=== PATIENT | male | born 1975 | race Caucasian/White ===

== ENCOUNTER 2018-06-11 00:52 | Outpatient (CLI) | payer BC, SELFPAY ==
[2018-06-11 11:14] LABS: TSH 1.84 uIU/mL (0.358-3.74)
== END 2018-06-11 01:12 ==
PROVIDERS: PCP Family Medicine; Visit Provider Family Medicine
DX: R53.83 Other fatigue (principal)
CPT/HCPCS: 36415; 84443

== ENCOUNTER 2019-06-24 01:10 | Outpatient (CLI) | payer BC, SELFPAY ==
[2019-06-24 12:01] LABS: Calculated LDL 166 mg/dL (<100); Cholesterol 232 mg/dL (<200); Glucose 98 mg/dL (74-106); HDL Cholesterol 34 mg/dL (40-60); Triglyceride 163 mg/dL (<150)
== END 2019-06-24 01:30 ==
PROVIDERS: PCP Family Medicine; Visit Provider Family Medicine
DX: Z13.1 Encounter for screening for diabetes mellitus (principal); Z13.220 Encounter for screening for lipoid disorders
CPT/HCPCS: 36415; 80061; 82947

== ENCOUNTER 2022-07-16 02:42 | Outpatient (CLI) | payer BC, SELFPAY ==
[2022-07-16 10:21] LABS: ALT 27 U/L (16-63); AST 18 U/L (15-37); Albumin 4.1 g/dL (3.4-5.0); Alkaline Phosphatase 50 U/L (46-116); Anion Gap 5.3 mmol/L (3-11); BUN 16 mg/dL (7-18); Bilirubin, Total 0.5 mg/dL (0.2-1.0); CO2 30.7 mmol/L (21.0-32.0); CREATININE 1.1 mg/dL (0.70-1.30); Calcium 8.9 mg/dL (8.5-10.1); Calculated LDL 137 mg/dL (<100); Chloride 106 mmol/L (98-107); Cholesterol 204 mg/dL (<200); Estimated GFR 84.37 (mL/min/1.73m2); Glucose 103 mg/dL (74-106); HDL Cholesterol 38 mg/dL (40-60); Potassium 4.4 mmol/L (3.5-5.1); Sodium 142 mmol/L (136-145); TSH (W/Ref FT4) 0.87 uIU/mL (0.36-3.74); Total Protein 7.2 g/dL (6.4-8.2); Triglyceride 149 mg/dL (<150)
[2022-07-17 10:46] LABS: Hepatitis C Ab w Rflx HCV PCR Negative (Negative)
[2022-07-17 10:49] LABS: HIV-1/2 Ag & Ab Screen Negative (Negative)
== END 2022-07-16 02:43 | disposition home or self-care (01) ==
LOC: LBO 02:42
PROVIDERS: PCP Nurse Practitioner Family; Visit Provider Nurse Practitioner Family
DX: E78.5 Hyperlipidemia, unspecified (principal); Z11.59 Encounter for screening for other viral diseases; Z13.6 Encounter for screening for cardiovascular disorders; I10 Essential (primary) hypertension; R63.2 Polyphagia
CPT/HCPCS: 36415; 80053; 80061; 86803; 87389; 84443

== ENCOUNTER 2023-02-02 08:22 | Day surgery (SDC) | payer BC, SELFPAY ==
--- NOTE | 2023-02-01 21:44 | W.PM.DSUDISC ---
Date of service: 02/02/23 Time of Service: 11:22 Discharge Plan Disposition Patient Disposition: Home Condition: Good Discharge Details Reason For Visit: Colonoscopy Attending Provider: Kwabena Awad Primary Care Provider: Mt Cervantes Home Meds and New Rx's Prescriptions: Continued multivitamin Tablet 1 tab PO DAILY azelaic acid 15 % gel 1 applic topical BID Qty: 50 2RF Rx Instructions: local application twice a day until rash is gone Discontinued bisacodyl [Dulcolax (bisacodyl)] 5 mg tablet,delayed release (DR/EC) 5 mg PO ONCE Qty: 4 0RF Rx Instructions: Colonoscopy Bowel Prep- Per Instructions polyethylene glycol 3350 17 gram/dose powder 238 g PO ONCE Qty: 238 0RF Rx Instructions: Colonoscopy Bowel Prep- Per Instructions Discharge Instructions Instructions: Colorectal Polyps (GEN) Additional Instructions: Tramaine, we were able to complete your colonoscopy today without any challenges. In total, I removed 3 polyps. 2 of these were extremely small. One, however, was quite large. The removal of this polyp was fairly extensive. However, the tissue that is left behind looks healthy and I do not anticipate any complications. However, because of the size of the polyp that was removed, I do want you to be a little careful over the next day or so. I would keep to a very simple, soft and liquidy diet for the next 24 hours. While I would expect a little bit of crampy gas discomfort over the next day or so, I would like to hear if you have any significant pain. Other things to be mindful of would be fevers, or any signs of nausea or vomiting. If you experience any of the symptoms, please let me know right away. Assuming you feel well tomorrow, I think it would be fine to go back to regular food at that point. It will take a week or so for me to get the results of the tissue that I removed. If you have any questions in the meantime, please do not hesitate to contact me at any time. 1. Consume a simple, soft and liquid diet over the next 24 hours. If you feel well tomorrow, advance your diet back up to regular food as soon as you tolerate. 2. Do not drive, drink alcohol, operate machinery, make critical decisions, or do activities that require coordination or balance for 24 hours. 3. Because air was put into your colon during the procedure, expelling air from your rectum (passing gas or farting) is normal. 4. You may not have a bowel movement for 1-3 days because of the colonoscopy prep. This is normal. 5. Go directly to the emergency room if you notice any of the following: Develop chills (warm to touch), or if you have a thermometer and your temperature is above 101 Difficulty breathing or difficultly swallowing Persistent vomiting Severe abdominal pain, other than gas cramps Severe chest pain Black, tarry stools Any bleeding ? exceeding one tablespoon 6. Call your physician if the site where your intravenous was started becomes red, swollen, painful, and warm to touch. 7. Your physician has reviewed your pre-procedure medications. Please continue to take those medications as previously ordered. You will be given specific information/education regarding any changes to your medications before leaving. Activity:: Activity as Tolerated Diet:: As Tolerated Discharge Orders Discharge Orders: Discharge Order (Routine); Ordered 02/01/23 Ordered By: Kwabena Awad DS: Diagnosis Discharge Diagnosis (1) Screening for colorectal cancer: Status: Acute Asessment and Plan: Follow-up on polypectomy results
--- NOTE | 2023-02-01 21:45 | W.COLOREPORT ---
Date of service: 02/02/23 Time of Service: 14:23 Colonoscopy Report Date of procedure: 02/02/23 Pre-op diagnosis general: Screening colonoscopy Post-op diagnosis procedure note: other (Rectal polyp and 2 colon polyps) Procedure: Colonoscopy with polypectomy Surgeon: Kwabena Awad Anesthesia Type: General:No Airway Estimated blood loss (mL): 5 Pathology: other (0.25 cm rectal polyp, 0.25 cm polyp at 30 cm, 5 cm polyp 100 cm from the anus (clinically consistent with lipoma)) Complications: None Disposition: same day Indications: Tramaine is a 47 year old man who needs a screening colonsocopy Prep: Miralax/Dulcolax Procedure Start Time: 10:28 Procedure End Time: 10:52 Retraction Time: 19 Findings: Rectal polyp, polyp at 30 cm, 5 cm mass at 100 cm from the anus. Procedure Description: After the induction of monitored anesthetic care, and with the patient in left lateral decubitus position, I began by performing an external anorectal exam.? Perineum and skin were normal, as was the anal verge.? There was no evidence of external hemorrhoids.? Next, I performed a digital rectal exam.? I did not appreciate any abnormal findings.? Next, I advanced a colonoscope into the rectal vault.? I performed retroflexion.? This appeared normal.? Using insufflation, I then advanced the colonoscope beyond the rectal folds and into the sigmoid colon before advancing towards the cecum.? Within the rectal vault was a 0.25 cm sessile rectal polyp. I removed this with cold forceps. There was minimal bleeding here. The quality of the prep was excellent.? The scope was noted to be in the cecum by identification of the ileocecal valve and appendiceal orifice.? I then began withdrawing the colonoscope using repeated irrigation as necessary for full evaluation of the colonic mucosa. Just beyond the cecum, essentially at the level of the hepatic flexure, around 100 cm from the anus was a large intraluminal mass. It was smooth, and had clinical features of a lipoma. The stalk of it was essentially pedunculated. I was able to remove this with energized snare polypectomy. There was minimal bleeding. The underlying colon wall appeared healthy, without any injury from the cautery. This mass was retrieved with suction removal along the length of the colon. I would estimate it to be greater than 5 cm in its longest dimension. I then replaced the colonoscope, and advanced back up to the resection site. I then began withdrawing the scope once again. Around 30 cm from the anal verge I identified a 0.25 cm polyp. ?It appeared sessile in character. ?I was able to remove this with a cold forceps. ?I examined the site, and there was minimal bleeding. ?Once this was completed, I continued to withdraw the scope and examine the remainder of the colonic mucosa. Once the scope was withdrawn to the level of the rectum, great care was taken to examine portions of the rectal folds.? Finally, the scope was withdrawn and the patient was brought to the same-day surgery recovery unit as the anesthetic wore off. ?The findings and instructions were shared with the patient prior to discharge.
[2023-02-02 09:25] VITALS: BP 162/96; PULSE 71; RESP 16; TEMP 36.8; O2SAT 96
[2023-02-02] MEDS: Lactated Ringers 1,000 ML 80 ML IV (09:45)
--- NOTE | 2023-02-02 09:58 | W.ANESPRE ---
General Info Date of Service Date Performed: 02/02/23 Height: 6 ft Weight: 108.5 kg Body Mass Index (BMI): 32.4 Surgical Procedure: Operation Date: 02/02/23 09:50 Proposed Procedure Side Surgeon jerry Awad MD Meds Allergies and Home Medications Allergies Allergy/AdvReac Type Severity Reaction Status Date / Time No Known Allergies Allergy Unverified 02/02/23 09:30 Home Medication Medication Instructions Recorded azelaic acid 15 % topical gel 1 applic topical BID #50 grams 12/24/20 multivitamin 1 tab PO DAILY 01/21/23 Current Visit Medications: Current Medications Generic Name Dose Route Start Last Admin Trade Name Freq PRN Reason Stop Dose Admin Hyoscyamine Sulfate 0.125 mg 02/01/23 21:46 Hyoscyamine 0.125 Mg Sl/Oral/Chew SL 03/03/23 21:45 DIRECTED PRN Ringer's Solution 1,000 mls @ 80 mls/hr 02/02/23 06:00 IV 03/01/23 23:59 [facility] IV Miscellaneous Supplies 1 each 02/02/23 06:00 Iv Access IV 03/01/23 23:59 DIRECTED BRETT Ondansetron HCl 4 mg 02/01/23 21:46 Ondansetron 4 Mg/2 Ml Vial IVP 03/03/23 21:45 Q4H PRN PRN Nausea / Vomiting Sodium Chloride 0 ml 02/02/23 06:00 Normal Saline Flush 10 Ml Syr IV 03/01/23 23:59 PRN PRN Sodium Chloride 0 ml 02/02/23 06:00 Normal Saline 10 Ml Vial IJ 03/01/23 23:59 DIRECTED PRN Sterile Water 0 ml 02/02/23 06:00 Water,Injection,Sterile 10 Ml Vial IJ 03/01/23 23:59 DIRECTED PRN PFSH Active Problems Active Problems: Problem Status Onset Code Migraine G43.909 Low back pain M54.5 Hyperlipidemia E78.5 Rosacea L71.9 Obesity E66.9 Increased appetite R63.2 Screening for colorectal cancer Z12.11, Z12.12 Medical History Medical History Diverticulosis Low back pain Medical History Comments:: 2x week Surgical History Surgical History Vasectomy (~2007) Tobacco Smoking/Tobacco Use Status: Former Tobacco Use Passive smoking exposure: Yes Second hand exposure: Yes Alcohol Alcohol Intake: current Alcohol intake frequency: a few times a week Alcohol type: beer, wine and hard liquor Substance Use Substance use: Occasionally Substance use type: marijuana Details: 2x week Vital Signs and Lab Results Vital Signs Most Recent Vital Signs in EMR: Most Recent Vital Signs Temp Pulse Resp BP Pulse Ox 36.8 C 71 16 162/96 H 96 02/02/23 09:25 02/02/23 09:25 02/02/23 09:25 02/02/23 09:25 02/02/23 09:25 Lab Results Blood Type / Crossmatch: No Data to Display Complete Blood Count: No Data to Display Complete Metabolic Panel: No Data to Display Liver Function Panel: No Data to Display Coagulation Panel: No Data to Display Cardiac Panel: No Data to Display Arterial Blood Gas: No Data to Display Venous Blood Gas: No Data to Display Pancreas Panel: No Data to Display Thyroid Panel: No Data to Display Infectious Disease: No Data to Display Blood Cultures: No Data to Display Toxicology Panel: No Data to Display Anesthesia Assessment and Plan Anesthesia History Personal History: No History of General Anesthesia Family History: No Family History of Anesthesia Complications Exercise Tolerance Exercise Tolerance: Metabolic Equivalents>4 Pertinent Negatives Pertinent Negatives: No Symptoms of GERD, No Major Cardiovascular Symptoms or Complaints and No Major Pulmonary Symptoms or Complaints Cardiac & Pulmonary Exam Cardiac Exam: Normal S1/S2 Heart Sounds Pulmonary Exam: Clear Bilateral Breath Sounds Implantable Cardiac Device Does patient have a Pacemaker or an ICD?: No Airway Exam Known Difficult Airway: No Mallampati Class: 1 Mouth Opening: Normal (> 3cm) Thyromental Distance: Greater than 3 cm Neck Range of Motion: Full ROM Neck Circumference: Normal Teeth Condition: Normal Dentition ASA Classification ASA Score: ASA 2 Emergency Case?: No NPO Status NPO Status: NPO Clears >2 hours, Solids >8 hours Anesthesia Plan Resuscitation Status: Full Code Anesthesia Technique: General Anesthesia Airway Planned: Natural Airway Monitors Used: Standard Monitors
[2023-02-02 09:59] VITALS: BMI 32.4
--- NOTE | 2023-02-02 10:30 | BOWEL_PTH ---
PATIENT: Tramaine Manuel LOC: [facility] U#:[id number] AGE/SX: 47/M ROOM: RE02/02/[address]: Kwabena Awad MD : 1975 BED: DIS: 02/02/2023 SPEC #: [id number] RECD: 02/02/23 13:08 STATUS: KENDY RE #: [id number] MATTIE: 02/02/23 10:[address]: Kwabena Awad DEPT: Surgical Specimen RECD BY: Marcia Jackman ENTERED: 02/02/23 13:10 SP TYPE: Bowel OTHR DR: Mt Braga DNP Tissues: 1 - BIOPSY BOWEL 2 - BIOPSY BOWEL 3 - BIOPSY BOWEL Procedures: GROSS AND MICRO LEVEL 4 Comments: [id number]
[2023-02-02 11:04] VITALS: BP 134/74; PULSE 85; RESP 18; TEMP 36.5; O2SAT 94
[2023-02-02 11:33] VITALS: BP 137/88; PULSE 63; RESP 16; TEMP 36.7; O2SAT 97
--- NOTE | 2023-02-02 12:59 | ANES.POST_ITS ---
Postoperative Evaluation Date, Time and Location Date Performed: 02/02/23 Time Performed: 11:25 Patient Location: Day Surgery Unit Vital Signs Most Recent Imported Vital Signs: Most Recent Vital Signs Temp Pulse Resp BP Pulse Ox 36.7 C 63 16 137/88 97 02/02/23 11:33 02/02/23 11:33 02/02/23 11:33 02/02/23 11:33 02/02/23 11:33 Pain Score Most Recent Pain Score: Most Recent Pain Score Pain Level 0 02/02/23 11:33 Assessment Mental Status: Awake (Alert & Oriented to Patient Baseline) Airway and Respiratory Function: Patent airway with normal (patient baseline) respiratory exam Cardiovascular Function: Hemodynamically Stable Hydration Status: Adequately Hydrated Nausea & Vomiting: No Nausea or Vomiting Pain: Pt. Denies Any Pain Peripheral Nerve Block: Patient did not receive a nerve block Teaching Patient Teaching: Advised to seek followup for the following concerns (See ex planation) Concerns: Other (Sleep Study)
== END 2023-02-02 12:05 | disposition home or self-care (01) ==
PROVIDERS: PCP Nurse Practitioner Family; Visit Provider Surgery
PROC: 0DJD8ZZ Inspection of Lower Intestinal Tract, Via Natural or Artificial Opening Endoscopic (ICD-10-PCS; CPT 45378; principal; 2023-02-02 09:45)
DX: Z12.11 Encounter for screening for malignant neoplasm of colon (principal); K62.1 Rectal polyp; D12.5 Benign neoplasm of sigmoid colon
CPT/HCPCS: 45385; 45380; 88305; J2001; J2704

== ENCOUNTER 2024-05-20 22:05 | Outpatient (REF) | payer BC, SELFPAY ==
[2024-05-20 21:43] LABS: Anion Gap 8.6 mmol/L (3-11); BUN 18 mg/dL (7-18); CO2 28.4 mmol/L (21.0-32.0); CREATININE 1.1 mg/dL (0.70-1.30); Calcium 9.6 mg/dL (8.5-10.1); Chloride 105 mmol/L (98-107); Estimated GFR 83.32 (mL/min/1.73m2); Glucose 108 mg/dL (74-106); Sodium 142 mmol/L (136-145)
[2024-05-20 21:50] LABS: COMMENT (LAB VIEW ONLY) 150.87 mg/dL; Microalb ug/mg Crea 3.9 ug/mg Cr
== END 2024-05-20 22:06 | disposition home or self-care (01) ==
LOC: LBN 22:05
PROVIDERS: PCP Nurse Practitioner Family; Visit Provider Nurse Practitioner Family
DX: I10 Essential (primary) hypertension (principal)
CPT/HCPCS: 80048; 82043; 82570